=== PATIENT | female | born 1985 | race Caucasian/White ===

== ENCOUNTER 2021-03-22 23:42 | Emergency (ER) | payer MEDICARE, MEDICAID, SELFPAY ==
--- NOTE | ~2021-03-22 | CT_ITS ---
EXAMINATION: CT ABDOMEN AND PELVIS WITH CONTRAST CLINICAL INFORMATION: Left lower quadrant and left flank pain. COMPARISON: None TECHNIQUE: Multidetector volumetric images were obtained from the superior aspect of the liver through the pubic symphysis following administration 85 mL of Omnipaque 350 intravenous contrast. Sagittal and coronal reformatted images were obtained on the technologist's workstation. Oral contrast: No This CT examination was performed using dose optimization techniques as appropriate, variously including the following: *Automated exposure control *Adjustment of mA and/or kV according to patient size (this includes techniques or standardized protocols for targeted exams where dose is matched to indication/reason for exam; i.e. extremities or head) *Use of iterative reconstruction technique DLP: 1400 mGy-cm FINDINGS: LUNG BASES: The visualized lung bases are unremarkable. LIVER, GALLBLADDER, AND BILIARY TREE: The liver is normal in size, shape, and attenuation. No focal hepatic lesion or biliary ductal dilatation is present. Cholecystectomy. PANCREAS: Unremarkable. SPLEEN: Unremarkable. ADRENAL GLANDS: Unremarkable. KIDNEYS AND URETERS: The kidneys are normal in size, shape, and attenuation. There is mild left hydroureteronephrosis. 0.2 cm calculus at the left ureterovesicular junction. Impaired function of the left kidney with delayed excretion. BLADDER: Unremarkable. GASTROINTESTINAL TRACT: The stomach is unremarkable. Normal caliber small bowel. No obstruction. Normal appendix. No colonic wall thickening or inflammatory change. No free air or free fluid. ABDOMINAL WALL: No significant hernia is appreciated. LYMPH NODES: Normal. VASCULAR: Unremarkable. PELVIC VISCERA: Anteverted uterus. No adnexal mass. OSSEOUS STRUCTURES: No acute or suspicious osseous abnormality. CT/CT abdomen pelvis w con IMPRESSION: Mild left hydroureteronephrosis with a 0.2 cm calculus at the left ureterovesicular junction.
[2021-03-23 00:09] VITALS: BP 134/86; PULSE 70; RESP 20; TEMP 36.9; O2SAT 100; BMI 44.4
--- NOTE | 2021-03-23 00:26 | ED_ITS ---
HPI - Abdominal Pain General Chief Complaint: Abdominal Pain <DAVID Meza Last Filed: 03/23/21 01:53> Stated Complaint: nausea , abd pain <DAVID Meza Last Filed: 03/23/21 01:53> Time Seen by Provider: 03/23/21 00:26 <DAVID Meza Last Filed: 03/23/21 01:53> Source: patient <DAVID Meza Last Filed: 03/23/21 01:53> Mode of arrival: ambulatory <DAVID Meza Last Filed: 03/23/21 01:53> Limitations: no limitations <DAVID Meza Last Filed: 03/23/21 01:53> History of Present Illness HPI narrative: 36-year-old female presents with left flank pain radiating into her left lower quadrant and left groin that started 3 hours ago. She was out walking her dog after dinner and suddenly got the pain.Her pain is a 10/10 and she states that is like she is having childbirth contractions. She has vomited 3 times and is nauseous. She has had dysuria with urinary frequency that just started today. No fevers. No hematuria. Last menstrual period was 1 week ago. Patient has had a cholecystectomy and C-sections. Patient is on prednisone for a rotator cuff injury <DAVID Meza Last Filed: 03/23/21 01:53> MD elicited complaint: abdominal pain and flank pain <DAVID Meza Last Filed: 03/23/21 01:53> Onset (ago): hour(s) (3) <DAVID Meza Last Filed: 03/23/21 01:53> Pain Consistency: constant <DAVID Meza Last Filed: 03/23/21 01:53> Location: LLQ and L flank <DAVID Meza Last Filed: 03/23/21 01:53> Severity: severe <DAVID Meza Last Filed: 03/23/21 01:53> Quality: stabbing and aching <DAVID Meza Last Filed: 03/23/21 01:53> Radiation: LLQ <DAVID Meza Last Filed: 03/23/21 01:53> Exacerbating factors: nothing <DAVID Meza Last Filed: 03/23/21 01:53> Associated symptoms: nausea, vomiting and dysuria <DAVID Meza Last Filed: 03/23/21 01:53> Related Data Home Medications: Previous Rx's Medication Instructions Recorded ketorolac 10 mg tablet 10 mg PO TID PRN 5 Days #10 tab 03/23/21 ondansetron HCl 4 mg tablet 4 mg PO Q6H PRN #14 tab 03/23/21 (Zofran) tamsulosin 0.4 mg capsule 0.4 mg PO DAILY #7 cap 03/23/21 <DAVID Meza Last Filed: 03/23/21 01:53> Allergies/Adverse Reactions: Allergies Allergy/AdvReac Type Severity Reaction Status Date / Time acetaminophen Allergy Intermediate HIVES Verified 03/23/21 00:08 [From Tylenol-Codeine] oxcarbazepine Allergy Intermediate HIVES Verified 03/23/21 00:08 [From TRILEPTAL] From Tylenol-Codeine Allergy Intermediate HIVES Uncoded 02/29/20 17:46 DEPRESSION MED Allergy Unknown RASH Uncoded 02/29/20 17:46 From Demerol Allergy Unknown ITCH/RASH Uncoded 02/29/20 17:46 From SEROQUEL Allergy Unknown UNKNOWN Uncoded 02/29/20 17:46 <DAVID Meza Last Filed: 03/23/21 01:53> Review of Systems Constitutional: Denies anorexia, Denies chills, Denies fever(s), Denies headache(s) and Denies weakness <DAVID Meza Last Filed: 03/23/21 01:53> Eyes: Denies blurry vision and Denies change in vision <DAVID Meza Last Filed: 03/23/21 01:53> Denies otalgia, Denies headache(s), Denies neck pain and Denies sore throat <DAVID Meza Last Filed: 03/23/21 01:53> Cardiovascular: Denies chest pain, Denies palpitations and Denies dyspnea <DAVID Meza Last Filed: 03/23/21 01:53> Respiratory: Denies chest congestion, Denies cough and Denies dyspnea <DAVID Shelton - Last Filed: 03/23/21 01:53> Gastrointestinal: Reports abdominal pain, Denies melena, Denies hematochezia, Denies coffee ground emesis, Reports nausea, Reports vomiting and Denies hematemesis <DAVID Meza Last Filed: 03/23/21 01:53> Genitourinary: Denies genital lesions, Reports dysuria, Denies pelvic pain, Reports flank pain, Reports urinary urgency, Denies vaginal discharge, Denies vaginal dryness, Denies vaginal odor and Denies vaginal pruritus <DAVID Meza - Last Filed: 03/23/21 01:53> Musculoskeletal: Denies myalgias, Denies muscle weakness and Denies neck pain <DAVID Meza Last Filed: 03/23/21 01:53> Skin/Breast: Denies erythema <DAVID Meza Last Filed: 03/23/21 01:53> Denies headache(s) and Denies weakness <ADVID Meza - Last Filed: 03/23/21 01:53> Endocrine: Denies palpitations <DAVID Meza Last Filed: 03/23/21 01:53> Physical Exam Vital Signs: Vital Signs: Last Vital Signs Temp 98.4 F 03/23/21 00:09 Pulse 70 03/23/21 00:09 Resp 16 03/23/21 02:48 BP 134/86 03/23/21 00:09 Pulse Ox 100 03/23/21 00:09 Body Mass Index 44.4 <DAVID Meza - Last Filed: 03/23/21 01:53> Vital Signs: Last Vital Signs Temp 98.4 F 03/23/21 00:09 Pulse 70 03/23/21 00:09 Resp 16 03/23/21 02:48 BP 134/86 03/23/21 00:09 Pulse Ox 100 03/23/21 00:09 Body Mass Index 44.4 <Faith Lee MD - Last Filed: 03/23/21 03:08> Const: General: alert, awake, acute distress (from pain) moderate and anxious <DAVID Meza Last Filed: 03/23/21 01:53> Nutritional Appearance: obese centrally obese <Meka Nicholson [facility] Last Filed: 03/23/21 01:53> Orientation/consciousness: patient oriented x3 <Meka Nicholson [facility] Last Filed: 03/23/21 01:53> Limitations: no limitations <Meka Nicholson [facility] Last Filed: 03/23/21 01:53> HENMT: Head: Yes normal to inspection, Yes normocephalic and Yes atraumatic <Meka Nicholson [facility] Last Filed: 03/23/21 01:53> Eyes: Conjunctivae: conjunctivae normal <Meka Nicholson [facility] Last Filed: 03/23/21 01:53> Pupils: Equal, round and reactive pupils present <Meka Nicholson [facility] Last Filed: 03/23/21 01:53> EOM: EOMs intact bilaterally <Meka Nicholson [facility] Last Filed: 03/23/21 01:53> Neck: Neck: Yes normal visual inspection, Yes full ROM, Yes no lymphadenopathy, Yes no meningeal signs and Yes trachea midline <Meka Nicholson [facility] Last Filed: 03/23/21 01:53> Resp: Effort & Inspection: normal respiratory effort and able to speak in complete sentences <Meka Nicholson [facility] Last Filed: 03/23/21 01:53> Auscultation: clear to auscultation bilaterally, no crackles, no rales, no rhonchi and no wheezes <Meka Nicholson [facility] Last Filed: 03/23/21 01:53> Cardio: Rate: regular rate <Meka Nicholson [facility] Last Filed: 03/23/21 01:53> Rhythm: regular rhythm <Meka Nicholson [facility] Last Filed: 03/23/21 01:53> Heart sounds: S1 normal heart sound present and S2 normal heart sound present <Meka Nicholson [facility] Last Filed: 03/23/21 01:53> GI: Inspection: Yes Abdominal panniculus present and Yes obesity <Meka Nicholson [facility] Last Filed: 03/23/21 01:53> Palpation (GI): Soft to palpation, Tenderness to palpation present (GI) in the LLQ, Guarding due to palpation present (GI) in the LLQ and not rigid <DAVID Meza - Last Filed: 03/23/21 01:53> Percussion: Yes normal to percussion <DAVID Meza Last Filed: 03/23/21 01:53> Auscultation: normal bowel sounds <DAVID Meza Last Filed: 03/23/21 01:53> Rectal Exam - Female: deferred <DAVID Meza Last Filed: 03/23/21 01:53> : General: Yes CVA tenderness on the left (mild) <DAVID Meza - Last Filed: 03/23/21 01:53> Back/Spine/Pelvis: Back: CVA tenderness <DAVID Meza - Last Filed: 03/23/21 01:53> Skin: General skin exam: no rashes or lesions noted <DAVID Meza Last Filed: 03/23/21 01:53> Neuro: General: patient oriented x3, tone normal, moves all extremities, no meningeal signs and no focal motor deficits <DAVID Meza Last Filed: 03/23/21 01:53> Cranial nerves: Yes Equal, round and reactive pupils present <DAVID Meza Last Filed: 03/23/21 01:53> Extrem: General: Yes normal to inspection and Yes full ROM <DAVID Meza - Last Filed: 03/23/21 01:53> Psych: Appearance: disheveled <DAVID Meza Last Filed: 03/23/21 01:53> Mental Status: mental status grossly normal <DAVID Meza Last Filed: 03/23/21 01:53> Speech and movement: Normal speech and movement present <DAVID Meza Last Filed: 03/23/21 01:53> Affect: Anxious affect present <DAVID Meza - Last Filed: 03/23/21 01:53> Course Course Course Narrative: 36-year-old female with sudden onset of left flank pain and left lower abdominal pain radiating into her left groin. Patient has been nauseous from the pain and vomited 3 times. On exam, patient has mild left CVA tenderness and is tender and guarding in her left lower quadrant. 22 gauge IV obtained in right hand. Patient is difficult to obtain IV access. Plan is to hydrate, get UA, labs, urine , hopefully place IV in antecubital fossa, and get CT scan. <DAVID Meza - Last Filed: 03/23/21 01:53> 36-year-old female with sudden onset of left flank pain and left lower abdominal pain radiating into her left groin. Patient has been nauseous from the pain and vomited 3 times. On exam, patient has mild left CVA tenderness and is tender and guarding in her left lower quadrant. 22 gauge IV obtained in right hand. Patient is difficult to obtain IV access. Plan is to hydrate, get UA, labs, urine , hopefully place IV in antecubital fossa, and get CT scan. I received sign-out from DAVID Nicholson, patient's CT scan shows ureterolithiasis. I discussed the findings with the patient. Patient has a white blood cell count of 19.4. Patient states she has been taking 20 mg of prednisone for several days. Urinalysis is negative, creatinine function within normal limits, antibiotics not indicated. Patient received 1 more dose of 2 mg of morphine, feeling better. <Faith Lee MD - Last Filed: 03/23/21 03:08> Reevaluation(s) Reevaluation #1: After morphine and ketorolac on re-examine patient states her pain is better. CBC shows a leukocytosis of 19.4 which could be due to her prednisone Chemistries remarkable only for blood glucose of 138. Patient is not by serum hCG. Signed pt out to Dr Lee, pending UA and abd/pelvis CT scan. <DAVID Meza - Last Filed: 03/23/21 01:53> MDM - Abdominal Pain Lab Data Result diagrams: : 03/23/21 01:03 03/23/21 01:03 <DAVID Meza - Last Filed: 03/23/21 01:53> Labs: Lab Results 03/23/21 03/23/21 03/23/21 Range/Units 01:03 01:03 01:58 WBC 19.4 H (4.8-10.8) X10*3/uL RBC 4.48 (4.20-5.50) X10*6/uL Hgb 12.4 (12.0-16.0) g/dl Hct 38.9 (37-47) % MCV 86.8 (80-98) fL MCH 27.7 (27.0-33.0) pg MCHC 31.9 (31.0-35.0) g/dl RDW 13.1 (11.0-16.0) % Plt Count 331 (160-400) X10*3/uL MPV 9.4 (9.4-12.3) fL Immature Gran % (Auto) 0.6 H (0.0-0.4) % Neut % (Auto) 77.7 H (45-73) % Lymph % (Auto) 14.4 L (20-40) % [place] % (Auto) 6.6 (2-11) % Eos % (Auto) 0.3 (0-4) % Baso % (Auto) 0.4 (0-2) % Lymph # (Auto) 2.8 (1.2-4.9) X10*3/uL [place] # (Auto) 1.3 H (0.1-1.2) X10*3/uL Eos # (Auto) 0.1 (0.0-0.4) X10*3/uL Baso # (Auto) 0.1 (0.0-0.2) X10*3/uL Abs Immat Gran (auto) 0.11 H (0.00-0.03) X10*3/uL Absolute Neuts (auto) 15.1 H (2.0-8.3) X10*3/uL Absolute Nucleated RBC 0.000 (0.0-0.012) X10*3/uL Nucleated RBC % (auto) 0.0 (0.0-0.2) /100WBC Sodium 140 (135-145) mmol/L Potassium 4.6 (3.3-5.1) mmol/L Chloride 107 (96-108) mmol/L Carbon Dioxide 22 (22-29) mmol/L Anion Gap 16 (12-20) BUN 16 (9-16) mg/dL Creatinine 1.08 (0.5-1.4) mg/dL Estim Creat Clear Calc 89.2 Estimated GFR 58 Random Glucose 138 H (60-115) mg/dL Calcium 9.8 (8.4-10.2) mg/dL Total Bilirubin 0.3 (0.0-1.0) mg/dL AST 18 (5-31) U/L ALT 19 (0-31) U/L Alkaline Phosphatase 83 (39-117) U/L Total Protein 7.1 (6.5-8.0) g/dL Albumin 4.4 (3.5-5.0) g/dL Beta HCG, Quant < 2 mIU/mL Urine Color YELLOW Urine Appearance CLEAR Urine pH 6.0 (5.0-8.0) Ur Specific [place] 1.025 (1.005-1.025) Urine Protein NEG (NEG-TRACE) MG/DL Urine Glucose (UA) NEG (NEG) MG/DL Urine Ketones 15 (NEG) MG/DL Urine Blood NEG (NEG) Urine Nitrite NEG (NEG) Ur Leukocyte Esterase NEG (NEG) Urine Test (NEGATIVE) 03/23/21 Range/Units 01:58 WBC (4.8-10.8) X10*3/uL RBC (4.20-5.50) X10*6/uL Hgb (12.0-16.0) g/dl Hct (37-47) % MCV (80-98) fL MCH (27.0-33.0) pg MCHC (31.0-35.0) g/dl RDW (11.0-16.0) % Plt Count (160-400) X10*3/uL MPV (9.4-12.3) fL Immature Gran % (Auto) (0.0-0.4) % Neut % (Auto) (45-73) % Lymph % (Auto) (20-40) % [place] % (Auto) (2-11) % Eos % (Auto) (0-4) % Baso % (Auto) (0-2) % Lymph # (Auto) (1.2-4.9) X10*3/uL [place] # (Auto) (0.1-1.2) X10*3/uL Eos # (Auto) (0.0-0.4) X10*3/uL Baso # (Auto) (0.0-0.2) X10*3/uL Abs Immat Gran (auto) (0.00-0.03) X10*3/uL Absolute Neuts (auto) (2.0-8.3) X10*3/uL Absolute Nucleated RBC (0.0-0.012) X10*3/uL Nucleated RBC % (auto) (0.0-0.2) /100WBC Sodium (135-145) mmol/L Potassium (3.3-5.1) mmol/L Chloride (96-108) mmol/L Carbon Dioxide (22-29) mmol/L Anion Gap (12-20) BUN (9-16) mg/dL Creatinine (0.5-1.4) mg/dL Estim Creat Clear Calc Estimated GFR Random Glucose (60-115) mg/dL Calcium (8.4-10.2) mg/dL Total Bilirubin (0.0-1.0) mg/dL AST (5-31) U/L ALT (0-31) U/L Alkaline Phosphatase (39-117) U/L Total Protein (6.5-8.0) g/dL Albumin (3.5-5.0) g/dL Beta HCG, Quant mIU/mL Urine Color Urine Appearance Urine pH (5.0-8.0) Ur Specific [place] (1.005-1.025) Urine Protein (NEG-TRACE) MG/DL Urine Glucose (UA) (NEG) MG/DL Urine Ketones (NEG) MG/DL Urine Blood (NEG) Urine Nitrite (NEG) Ur Leukocyte Esterase (NEG) Urine Test NEGATIVE (NEGATIVE) <DAVID Meza - Last Filed: 03/23/21 01:53> Lab Results 03/23/21 03/23/21 03/23/21 Range/Units 01:03 01:03 01:58 WBC 19.4 H (4.8-10.8) X10*3/uL RBC 4.48 (4.20-5.50) X10*6/uL Hgb 12.4 (12.0-16.0) g/dl Hct 38.9 (37-47) % MCV 86.8 (80-98) fL MCH 27.7 (27.0-33.0) pg MCHC 31.9 (31.0-35.0) g/dl RDW 13.1 (11.0-16.0) % Plt Count 331 (160-400) X10*3/uL MPV 9.4 (9.4-12.3) fL Immature Gran % (Auto) 0.6 H (0.0-0.4) % Neut % (Auto) 77.7 H (45-73) % Lymph % (Auto) 14.4 L (20-40) % [place] % (Auto) 6.6 (2-11) % Eos % (Auto) 0.3 (0-4) % Baso % (Auto) 0.4 (0-2) % Lymph # (Auto) 2.8 (1.2-4.9) X10*3/uL [place] # (Auto) 1.3 H (0.1-1.2) X10*3/uL Eos # (Auto) 0.1 (0.0-0.4) X10*3/uL Baso # (Auto) 0.1 (0.0-0.2) X10*3/uL Abs Immat Gran (auto) 0.11 H (0.00-0.03) X10*3/uL Absolute Neuts (auto) 15.1 H (2.0-8.3) X10*3/uL Absolute Nucleated RBC 0.000 (0.0-0.012) X10*3/uL Nucleated RBC % (auto) 0.0 (0.0-0.2) /100WBC Sodium 140 (135-145) mmol/L Potassium 4.6 (3.3-5.1) mmol/L Chloride 107 (96-108) mmol/L Carbon Dioxide 22 (22-29) mmol/L Anion Gap 16 (12-20) BUN 16 (9-16) mg/dL Creatinine 1.08 (0.5-1.4) mg/dL Estim Creat Clear Calc 89.2 Estimated GFR 58 Random Glucose 138 H (60-115) mg/dL Calcium 9.8 (8.4-10.2) mg/dL Total Bilirubin 0.3 (0.0-1.0) mg/dL AST 18 (5-31) U/L ALT 19 (0-31) U/L Alkaline Phosphatase 83 (39-117) U/L Total Protein 7.1 (6.5-8.0) g/dL Albumin 4.4 (3.5-5.0) g/dL Beta HCG, Quant < 2 mIU/mL Urine Color YELLOW Urine Appearance CLEAR Urine pH 6.0 (5.0-8.0) Ur Specific [place] 1.025 (1.005-1.025) Urine Protein NEG (NEG-TRACE) MG/DL Urine Glucose (UA) NEG (NEG) MG/DL Urine Ketones 15 (NEG) MG/DL Urine Blood NEG (NEG) Urine Nitrite NEG (NEG) Ur Leukocyte Esterase NEG (NEG) Urine Test (NEGATIVE) 03/23/21 Range/Units 01:58 WBC (4.8-10.8) X10*3/uL RBC (4.20-5.50) X10*6/uL Hgb (12.0-16.0) g/dl Hct (37-47) % MCV (80-98) fL MCH (27.0-33.0) pg MCHC (31.0-35.0) g/dl RDW (11.0-16.0) % Plt Count (160-400) X10*3/uL MPV (9.4-12.3) fL Immature Gran % (Auto) (0.0-0.4) % Neut % (Auto) (45-73) % Lymph % (Auto) (20-40) % [place] % (Auto) (2-11) % Eos % (Auto) (0-4) % Baso % (Auto) (0-2) % Lymph # (Auto) (1.2-4.9) X10*3/uL [place] # (Auto) (0.1-1.2) X10*3/uL Eos # (Auto) (0.0-0.4) X10*3/uL Baso # (Auto) (0.0-0.2) X10*3/uL Abs Immat Gran (auto) (0.00-0.03) X10*3/uL Absolute Neuts (auto) (2.0-8.3) X10*3/uL Absolute Nucleated RBC (0.0-0.012) X10*3/uL Nucleated RBC % (auto) (0.0-0.2) /100WBC Sodium (135-145) mmol/L Potassium (3.3-5.1) mmol/L Chloride (96-108) mmol/L Carbon Dioxide (22-29) mmol/L Anion Gap (12-20) BUN (9-16) mg/dL Creatinine (0.5-1.4) mg/dL Estim Creat Clear Calc Estimated GFR Random Glucose (60-115) mg/dL Calcium (8.4-10.2) mg/dL Total Bilirubin (0.0-1.0) mg/dL AST (5-31) U/L ALT (0-31) U/L Alkaline Phosphatase (39-117) U/L Total Protein (6.5-8.0) g/dL Albumin (3.5-5.0) g/dL Beta HCG, Quant mIU/mL Urine Color Urine Appearance Urine pH (5.0-8.0) Ur Specific [place] (1.005-1.025) Urine Protein (NEG-TRACE) MG/DL Urine Glucose (UA) (NEG) MG/DL Urine Ketones (NEG) MG/DL Urine Blood (NEG) Urine Nitrite (NEG) Ur Leukocyte Esterase (NEG) Urine Test NEGATIVE (NEGATIVE) <Faith Lee MD - Last Filed: 03/23/21 03:08> Imaging Data CT abdomen: Radiologist's impression: DLP: 1400 mGy-cm FINDINGS: LUNG BASES: The visualized lung bases are unremarkable.? LIVER, GALLBLADDER, AND BILIARY TREE: The liver is normal in size, shape, and attenuation. No focal hepatic lesion or biliary ductal dilatation is present. Cholecystectomy.? PANCREAS: Unremarkable.? SPLEEN: Unremarkable.? ADRENAL GLANDS: Unremarkable.? KIDNEYS AND URETERS: The kidneys are normal in size, shape, and attenuation. There is mild left hydroureteronephrosis. 0.2 cm calculus at the left ureterovesicular junction. Impaired function of the left kidney with delayed excretion. BLADDER: Unremarkable.? GASTROINTESTINAL TRACT: The stomach is unremarkable. Normal caliber small bowel. No obstruction. Normal appendix. No colonic wall thickening or inflammatory change. No free air or free fluid.? ABDOMINAL WALL: No significant hernia is appreciated.? LYMPH NODES: Normal. VASCULAR: Unremarkable. PELVIC VISCERA: Anteverted uterus. No adnexal mass.? OSSEOUS STRUCTURES: No acute or suspicious osseous abnormality.? CT/CT abdomen pelvis w con IMPRESSION: Mild left hydroureteronephrosis with a 0.2 cm calculus at the left ureterovesicular junction.? <Faith Lee MD - Last Filed: 03/23/21 03:08> Discharge Plan Discharge Clinical Impression: Ureterolithiasis Abdominal pain Qualifiers: Abdominal location: left lower quadrant Qualified Code(s): R10.32 - Left lower quadrant pain <DAVID Meza - Last Filed: 03/23/21 01:53> Patient Disposition: Home, Self-Care <DAVID Meza - Last Filed: 03/23/21 01:53> Instructions: Kidney Stones (ED) <DAVID Meza - Last Filed: 03/23/21 01:53> Additional Instructions: Please follow-up with your primary care physician tomorrow. If you have any worsening or new symptoms, please return to the emergency room or call 911 <DAVID Meza - Last Filed: 03/23/21 01:53> Prescriptions: New ketorolac 10 mg tablet 10 mg PO TID PRN (Reason: pain) 5 Days Qty: 10 RF: 0 tamsulosin 0.4 mg capsule 0.4 mg PO DAILY Qty: 7 RF: 0 ondansetron HCl [Zofran] 4 mg tablet 4 mg PO Q6H PRN (Reason: nausea and vomiting) Qty: 14 RF: 0 <DAVID Meza - Last Filed: 03/23/21 01:53> Referrals: Guzman Correa MD [Physician] - 2 days <DAVID Meza - Last Filed: 03/23/21 01:53> [facility] Past Medical History Medical History: Medical History Diabetes <DAVID Meza - Last Filed: 03/23/21 01:53> Social History Social History: Social History Advance Directives: No Advance Directives Information Provided: Yes <DAVID Meza - Last Filed: 03/23/21 01:53>
[2021-03-23] MEDS: 0.9 % Sodium Chloride 1,000 ML 999 ML IV (00:52)
[2021-03-23] MEDS: ondansetron HCL 4 MG/2 ML VIAL IVPUSH (00:52)
[2021-03-23 00:53] VITALS: RESP 16
[2021-03-23] MEDS: Morphine Sulfate 4 MG/ML CARTRIDGE IVPUSH (00:53)
[2021-03-23 01:08] LABS: Basophils Absolute Auto 0.1 X10*3/uL (0.0-0.2); Basophils Percent Auto 0.4 % (0-2); Eosinophils Absolute Auto 0.1 X10*3/uL (0.0-0.4); Eosinophils Percent Auto 0.3 % (0-4); Hematocrit 38.9 % (37-47); Hemoglobin 12.4 g/dl (12.0-16.0); Imm Gran Abs Auto 0.11 X10*3/uL (0.00-0.03); Imm Gran Pct Auto 0.6 % (0.0-0.4); Lymphocytes Absolute Auto 2.8 X10*3/uL (1.2-4.9); Lymphocytes Percent Auto 14.4 % (20-40); Mean Corpuscular HGB Conc 31.9 g/dl (31.0-35.0); Mean Corpuscular Hemoglobin 27.7 pg (27.0-33.0); Mean Corpuscular Volume 86.8 fL (80-98); Mean Platelet Volume 9.4 fL (9.4-12.3); Monocytes Absolute Auto 1.3 X10*3/uL (0.1-1.2); Monocytes Percent Auto 6.6 % (2-11); Neutrophils Absolute Auto 15.1 X10*3/uL (2.0-8.3); Neutrophils Percent Auto 77.7 % (45-73); Platelet Count 331 X10*3/uL (160-400); Red Blood Count 4.48 X10*6/uL (4.20-5.50); Red Cell Distribution Width 13.1 % (11.0-16.0); White Blood Count 19.4 X10*3/uL (4.8-10.8)
[2021-03-23] MEDS: Ketorolac Tromethamine 15 MG/ML VIAL 30 MG IVPUSH (01:08)
[2021-03-23 01:38] LABS: Alanine Aminotransferase 19 U/L (0-31); Albumin Level 4.4 g/dL (3.5-5.0); Alkaline Phosphatase 83 U/L (39-117); Anion Gap 16 (12-20); Aspartate Amino Transferase 18 U/L (5-31); Bilirubin Total 0.3 mg/dL (0.0-1.0); Blood Urea Nitrogen 16 mg/dL (9-16); Calcium 9.8 mg/dL (8.4-10.2); Carbon Dioxide 22 mmol/L (22-29); Chloride 107 mmol/L (96-108); Creatinine Clr Calc Pharmacy 89.2; Estimated Glomerular Filt Rate 58; Glucose Random 138 mg/dL (60-115); Potassium 4.6 mmol/L (3.3-5.1); Sodium 140 mmol/L (135-145); Total Protein 7.1 g/dL (6.5-8.0)
[2021-03-23 01:41] LABS: MANUAL DIFF FLAG NO
[2021-03-23 01:44] LABS: HCG Quantitative < 2 mIU/mL
[2021-03-23 02:11] LABS: UPreg QC Valid YES; Urine Pregnancy NEGATIVE (NEGATIVE)
[2021-03-23 02:15] LABS: Appearance Urine CLEAR; Color Urine YELLOW; Glucose Urine UA NEG (NEG); Leukocyte Esterase Urine NEG (NEG); Nitrite Urine NEG (NEG); Specific Gravity - Urine 1.025 (1.005-1.025); Urine Blood NEG (NEG); Urine Ketones 15 MG/DL (NEG); Urine Protein NEG (NEG-TRACE)
[2021-03-23] MEDS: iohexoL 350 MG/ML 100 ML INFUS..BTL 85 ML IV (02:18)
[2021-03-23 02:38] VITALS: RESP 16
[2021-03-23 02:39] VITALS: RESP 16
[2021-03-23] MEDS: Morphine Sulfate 2 MG/ML CARTRIDGE IVPUSH (02:39)
[2021-03-23 02:48] VITALS: RESP 16
[2021-03-23] MEDS: 0.9 % Sodium Chloride 1,000 ML 999 ML IVCONT (02:55)
[2021-03-23] MEDS: Tamsulosin HCL 0.4 MG CAPSULE PO (03:23)
[2021-03-23] MEDS: Ibuprofen 400 MG TABLET PO (03:23)
[2021-03-23 04:53] VITALS: BP 141/90; PULSE 73; RESP 16; O2SAT 100
== END 2021-03-23 04:55 | disposition home or self-care (01) ==
PROVIDERS: Emergency Medicine; Physician Assistant; Emergency Provider Emergency Medicine
DX: N20.1 Calculus of ureter (principal); R10.32 Left lower quadrant pain; R11.2 Nausea with vomiting, unspecified; R30.0 Dysuria; Z79.899 Other long term (current) drug therapy
CPT/HCPCS: 36415; 74177; 80053; 81003; 81025; 84702; 85025; 96361; 96374; 96375; 96376; 99284; J1885; J2270; J2405; Q9967

== ENCOUNTER 2024-10-16 10:26 | Emergency (ER) | payer MEDICARE, MEDICAID, SELFPAY ==
--- NOTE | ~2024-10-16 | US_ITS ---
EXAMINATION: US LOWER EXTREMITY VEINS LIMITED FOLLOW UP RIGHT HISTORY: posterior knee/calf pain COMPARISON: There are no prior studies for comparison. TECHNIQUE: Duplex and color Doppler sonographic examination of the deep venous system of the right lower extremity was performed. FINDINGS: The common femoral, superficial femoral, and popliteal veins are patent demonstrating normal compressibility, spontaneous flow, and augmentation. There is a normal color and spectral Doppler waveform appearance of the visualized deep venous system above the knee. The posterior tibial and peroneal veins are patent. Incidental note is made of fluid just above the calcaneus which is likely in the retrocalcaneal bursa. US/US venous duplex LE RT IMPRESSION: No evidence of acute DVT in the right lower extremity. Electronically signed by: Chester Jackson MD 10/16/2024 12:23 PM EDT
--- NOTE | ~2024-10-16 | XR_ITS ---
EXAMINATION: XR TIBIA AND FIBULA, RIGHT CLINICAL INFORMATION: leg pain COMPARISON: None available. TECHNIQUE: AP and lateral views of the right tibia and fibula were obtained. FINDINGS: The bones and soft tissues are normal. No fracture. No osseous lesions. XR/XR tibia fibula RT 2V IMPRESSION: Normal right tibia and fibula. Electronically signed by: Moo Salmon MD 10/16/2024 12:26 PM EDT
--- NOTE | ~2024-10-16 | XR_ITS ---
EXAMINATION: XR FOOT, RIGHT CLINICAL INFORMATION: fracture fall COMPARISON: None available. TECHNIQUE: AP, lateral, and oblique views of the right foot. FINDINGS: No fracture, dislocation, or suspicious bone lesion. Normal bone mineralization. Normal alignment. Minimal arthritis at the first MTP joint. Joint spaces are otherwise preserved. No significant arthropathy. There is a moderate-sized plantar calcaneal spur. There is a moderate sized Achilles spur with overlying soft tissue swelling suggesting acute enthesopathy. XR/XR foot RT 2V IMPRESSION: 1. No acute fracture or dislocation. 2. Moderate-sized Achilles spurring with overlying soft tissue swelling suggests acute enthesopathy. 3. Moderate-sized plantar calcaneal spur. Electronically signed by: Moo Salmon MD 10/16/2024 12:25 PM EDT
--- NOTE | ~2024-10-16 | XR_ITS ---
EXAMINATION: XR KNEE, RIGHT CLINICAL INFORMATION: right knee pain COMPARISON: None available. TECHNIQUE: Four views of the right knee. FINDINGS: No fracture, dislocation, or suspicious bone lesion. Normal bone mineralization. Normal alignment. Minimal medial compartment osteoarthrosis. Joint spaces are otherwise preserved. No significant arthropathy. Mild patella bety. No significant joint effusion. Soft tissues appear normal. XR/XR knee RT 4V IMPRESSION: 1. No acute bony abnormalities. No joint effusion. 2. Minimal medial compartment osteoarthrosis. 3. Mild patella bety. Electronically signed by: Moo Salmon MD 10/16/2024 12:28 PM EDT
--- NOTE | ~2024-10-16 | XR_ITS ---
EXAMINATION: XR ANKLE, RIGHT CLINICAL INFORMATION: fall. fracture COMPARISON: None available. TECHNIQUE: AP, lateral, and mortise views of the right ankle. FINDINGS: No fracture, dislocation, or suspicious bone lesion. There is no malalignment. Ankle mortise is intact. The talar dome is normal. The subtalar joints are intact. The midfoot and hindfoot are normally aligned. Moderate sized plantar calcaneal spur, with a large dorsal Achilles spur with overlying soft tissue swelling suggesting acute enthesopathy. There is no ankle joint effusion. The soft tissues appear normal. XR/XR ankle RT 2V IMPRESSION: 1. No acute fracture or dislocation. 2. Acute appearing Achilles enthesopathy, with soft tissue swelling and spurring. 3. Moderate size plantar calcaneal spur. Electronically signed by: Moo Salmon MD 10/16/2024 12:22 PM EDT
[2024-10-16 11:08] VITALS: BP 129/82; PULSE 82; RESP 16; TEMP 36.4; O2SAT 99; BMI 42.9
--- NOTE | 2024-10-16 11:10 | ED.GENADULT ---
HPI - General Adult General Chief complaint: Extremity Injury, Lower Stated complaint: r leg pain Time Seen by Provider: 10/16/24 14:08 Source: patient Mode of arrival: ambulatory Limitations: no limitations History of Present Illness ED Provider: Slade Mederos HPI narrative: 39 yold female with pmh of diabetes presents to the ED for right knee, right leg, and right ankle pain for one week without any trauma. 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 patient states she is not able to bear weight on extremity. patient states no chest pain or shortness of breath. Related Data Previous Rx's ?Medication ?Instructions ?Recorded ketorolac 10 mg tablet 10 mg PO TID PRN pain 5 days #10 03/23/21 tabs ondansetron HCl 4 mg tablet 4 mg PO Q6H PRN nausea and 03/23/21 (Zofran) vomiting #14 tabs tamsulosin 0.4 mg capsule 0.4 mg PO DAILY #7 caps 03/23/21 oxycodone 5 mg tablet 5 mg PO TID PRN pain #9 tabs 10/16/24 prednisone 20 mg tablet 40 mg (2 x 20 mg) PO DAILY 5 days 10/16/24 #10 tabs Allergies Allergy/AdvReac Type Severity Reaction Status Date / Time oxcarbazepine Allergy Intermediate HIVES Verified 10/16/24 11:09 [From TRILEPTAL] From Tylenol-Codeine Allergy Intermediate HIVES Uncoded 10/16/24 11:07 DEPRESSION MED Allergy Unknown RASH Uncoded 10/16/24 11:07 From Demerol Allergy Unknown ITCH/RASH Uncoded 10/16/24 11:07 From SEROQUEL Allergy Unknown UNKNOWN Uncoded 10/16/24 11:07 Review of Systems Review of Systems: Right knee, ankle pain, leg pain Yes all other systems are reviewed and are negative PMFSH Past Medical History Medical History Diabetes Social History Social History Advance Directives: No Advance Directives Information Provided: Yes Physical Exam ED Vital Signs: Vital Signs - 24 hr 10/16/24 11:08 10/16/24 14:43 Temperature 97.5 F 97.5 F Pulse Rate 82 82 Respiratory Rate 16 16 Blood Pressure 129/82 129/82 Pulse Oximetry 99 99 Oxygen Delivery Method Room Air Room Air BMI result Body Mass Index 42.9 Const General: cooperative, healthy appearing, comfortable, no acute distress, well developed, alert, awake and Physically active Orientation/consciousness: patient oriented x3 HENMT Head: Yes normal to inspection, Yes No palpable skull fracture present, Yes normocephalic and Yes atraumatic Eyes General: appearance normal, both eyes and all related structures Neck Neck: Yes normal visual inspection, Yes full ROM, Yes no lymphadenopathy, Yes no meningeal signs, Yes trachea midline, Yes supple, No anterior neck swelling and No tender Chest Chest palpation & inspection: normal inspection of the chest and normal palpation of entire chest wall Resp Effort & Inspection: normal respiratory effort and able to speak in complete sentences Auscultation: clear to auscultation bilaterally Cardio Jugular venous distension: no JVD Heart sounds: S1 normal heart sound present and S2 normal heart sound present GI Inspection: Yes normal to inspection Palpation (GI): not firm, nontender, no guarding and not rigid General: Yes no CVA tenderness Back/Spine/Pelvis Back: no CVA tenderness and No back tenderness Skin General skin exam: no rashes or lesions noted, elasticity normal and turgor normal Neuro General: patient oriented x3, gait normal, no meningeal signs, no focal motor deficits and CN's II-XI intact bilaterally Extrem General: Yes normal to inspection, Yes full ROM and Yes capillary refill normal Knee images: 1. positive for tenderness. negative for ecchymosis, erythema, stiffness, crepitus, red streaks or deformity. negative for calf tenderness. rest of extremity is normal. motor, neuro, and vascular exam is intact. Ankle/foot/toe images: 1. positive for tenderness on palpation. negative for erythema, ecchymosis, deformity, crepits, pus dishcarge, or foul odor. Achilles intact. negative Graham test. rest of extremity is normal. motor, neuro, and vascular exam is intact. Course Course Course Narrative: RME; 39 yold female presents to the ED for right posterior knee pain going down leg that has worsened. Patient was seen at [facility] and found to have landry cysts. today she fell , but did not fall to the ground. she caught herself, but states have pain in achilles of right leg. Ablel to move achilles, but with pain. positive for right anterior and posterior knee pain. labs and imaging ordered. Medical Decision Making Medical Decision Making [facility] Narrative: 39-year-old female presents to ED for right leg ankle and posterior knee pain. Patient has trouble bearing weight. Patient denies any recent trauma. Patient states he is having going on for a week. Patient was informed she had Landry's cyst at [facility]. patient denies any chest pain, fever, pleurisy, recent long travel, bluish/black dilscoration, red streaks, or any IV drug use. Patient is not able to take NSAIDs and Tylenol as per her primary care provider. Negative Graham test. Patient is able to move Achilles. Ultrasound negative for Landry's cyst or DVT. Ultrasound does shows fluid in the bursa near Achilles area. X-rays also shows severe plantar Achilles osteophytes. Patient is placed in crutches and Jorje wrap. Patient will be discharged with pain medication steroids. Patient is informed to follow up with the orthopedic surgeon. Not suspecting septic joint, tenosynovitis, arterial occlusion, compartment syndrome, gout, compartment syndrome, arterial occlusion, cellulitis, osteomyelitits, necortizing fascitits, or any life-threatening etiology Differential Diagnosis Differential Diagnoses: The differential diagnosis associated with the presentation includes (DVT, Landry's cyst) Admission/Observation Consideration of admission/observation: Escalation of care including admission/observation considered Lab Data [facility] Lab Attestation statement: I reviewed the patient's lab results. 10/16/24 11:44 10/16/24 11:44 Labs: Lab Results 10/16/24 Range/Units 11:44 WBC 11.5 H (4.8-10.8) X10*3/uL RBC 5.04 (4.20-5.50) X10*6/uL Hgb 14.1 (12.0-16.0) g/dl Hct 43.7 (37.0-47.0) % MCV 86.7 (80.0-98.0) fL MCH 28.0 (27.0-33.0) pg MCHC 32.3 (31.0-35.0) g/dl RDW 13.5 (11.0-16.0) % Plt Count 342 (160-400) X10*3/uL MPV 9.3 L (9.4-12.3) fL Immature Gran % (Auto) 0.5 H (0.0-0.4) % Neut % (Auto) 60.4 (45-73) % Lymph % (Auto) 27.7 (20-40) % [place] % (Auto) 5.8 (2-11) % Eos % (Auto) 4.7 H (0-4) % Baso % (Auto) 0.9 (0-2) % Lymph # (Auto) 3.2 (1.2-4.9) X10*3/uL [place] # (Auto) 0.7 (0.1-1.2) X10*3/uL Eos # (Auto) 0.5 H (0.0-0.4) X10*3/uL Baso # (Auto) 0.1 (0.0-0.2) X10*3/uL Abs Immat Gran (auto) 0.06 H (0.00-0.03) X10*3/uL Absolute Neuts (auto) 7.0 (2.0-8.3) x10*3/uL Absolute Nucleated RBC 0.000 (0.0-0.012) X10*3/uL Nucleated RBC % (auto) 0.0 (0.0-0.2) /100WBC PT 12.4 (10.9-12.4) SEC INR 1.1 (0.9-1.1) APTT 30.3 (26.0-36.8) SEC Sodium 141 (135-145) mmol/L Potassium 4.0 (3.3-5.1) mmol/L Chloride 108 (96-108) mmol/L Carbon Dioxide 25 (22-29) mmol/L Anion Gap 12 (12-20) BUN 11 (9-16) mg/dL Creatinine 0.74 (0.5-1.4) mg/dL Estim Creat Clear Calc 123.8 Estimated GFR > 60 Random Glucose 108 (60-115) mg/dL Calcium 9.7 (8.4-10.2) mg/dL Total Bilirubin 0.2 (0.0-1.0) mg/dL AST 22 (5-31) U/L ALT 26 (0-31) U/L Alkaline Phosphatase 91 (39-117) U/L Total Protein 7.4 (6.5-8.0) g/dL Albumin 4.4 (3.5-5.0) g/dL Independent Interpretation I performed an independent interpretation of an: Plain X-Ray and Ultrasound Radiology Impression Discussion of test interpretation with radiology: I have reviewed the radiologist's reading. Independent Historian Clinical information obtained from an independent historian. History obtained from or confirmed by: Other (patient) Prescription Management I considered prescription management with: Pain Medication Discharge Plan Discharge Clinical Impression: Retrocalcaneal bursitis (back of heel), Enthesopathy of ankle Patient Disposition: Home, Self-Care Instructions: Ankle Bursitis (ED), Heel Spur (ED) Additional Instructions: Your ultrasound came back negative for Landry's cyst or blood clot but does shows fluid in your ankle calcaneal bursa area which can be considered ankle bursitis. 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 You will need follow up with orthopedic surgeon for management. Return to the ED immediately for worsening pain, increased swelling, bluish black discoloration, redness, red streaks, fever, chills, calf pain, chest pain, shortness of breath, or any other concerning symptoms. EXAMINATION: US LOWER EXTREMITY VEINS LIMITED FOLLOW UP RIGHT HISTORY: posterior knee/calf pain COMPARISON: There are no prior studies for comparison. TECHNIQUE: Duplex and color Doppler sonographic examination of the deep venous system of the right lower extremity was performed. FINDINGS: The common femoral, superficial femoral, and popliteal veins are patent demonstrating normal compressibility, spontaneous flow, and augmentation. There is a normal color and spectral Doppler waveform appearance of the visualized deep venous system above the knee. The posterior tibial and peroneal veins are patent. Incidental note is made of fluid just above the calcaneus which is likely in the retrocalcaneal bursa. US/US venous duplex LE RT IMPRESSION: No evidence of acute DVT in the right lower extremity. Electronically signed by: Chester Jackson MD 10/16/2024 12:23 PM EDT EXAMINATION: XR ANKLE, RIGHT CLINICAL INFORMATION: fall. fracture COMPARISON: None available. TECHNIQUE: AP, lateral, and mortise views of the right ankle. FINDINGS: No fracture, dislocation, or suspicious bone lesion. There is no malalignment. Ankle mortise is intact. The talar dome is normal. The subtalar joints are intact. The midfoot and hindfoot are normally aligned. Moderate sized plantar calcaneal spur, with a large dorsal Achilles spur with overlying soft tissue swelling suggesting acute enthesopathy. There is no ankle joint effusion. The soft tissues appear normal. XR/XR ankle RT 2V IMPRESSION: 1. No acute fracture or dislocation. 2. Acute appearing Achilles enthesopathy, with soft tissue swelling and spurring. 3. Moderate size plantar calcaneal spur. Electronically signed by: Moo Salmon MD 10/16/2024 12:22 PM EDT RP Prescriptions: New prednisone 20 mg tablet 40 mg PO DAILY 5 Days Qty: 10 0RF oxycodone 5 mg tablet 5 mg PO TID PRN (Reason: pain) Qty: 9 0RF Rx Instructions: Partial Fill upon patient request. No Action ketorolac 10 mg tablet 10 mg PO TID PRN (Reason: pain) 5 Days Qty: 10 0RF tamsulosin 0.4 mg capsule 0.4 mg PO DAILY Qty: 7 0RF ondansetron HCl [Zofran] 4 mg tablet 4 mg PO Q6H PRN (Reason: nausea and vomiting) Qty: 14 0RF Referrals: [facility] [Provider Group] (Ankle bursitis.) Yuly Escobedo PA-C [Primary Care Provider] - (Ankle bursitis) Interventions: ED Discharge Assessment Last Done: 10/16/24 14:43 Discharge Date/Time: 10/16/24 14:43 Print Language: [place]
[2024-10-16 11:50] LABS: MANUAL DIFF FLAG NO
[2024-10-16 11:58] LABS: Basophils Absolute Auto 0.1 X10*3/uL (0.0-0.2); Basophils Percent Auto 0.9 % (0-2); Eosinophils Absolute Auto 0.5 X10*3/uL (0.0-0.4); Eosinophils Percent Auto 4.7 % (0-4); Hematocrit 43.7 % (37.0-47.0); Hemoglobin 14.1 g/dl (12.0-16.0); Imm Gran Abs Auto 0.06 X10*3/uL (0.00-0.03); Imm Gran Pct Auto 0.5 % (0.0-0.4); Lymphocytes Absolute Auto 3.2 X10*3/uL (1.2-4.9); Lymphocytes Percent Auto 27.7 % (20-40); Mean Corpuscular HGB Conc 32.3 g/dl (31.0-35.0); Mean Corpuscular Volume 86.7 fL (80.0-98.0); Mean Platelet Volume 9.3 fL (9.4-12.3); Monocytes Absolute Auto 0.7 X10*3/uL (0.1-1.2); Monocytes Percent Auto 5.8 % (2-11); Neutrophils Percent Auto 60.4 % (45-73); Platelet Count 342 X10*3/uL (160-400); Red Blood Count 5.04 X10*6/uL (4.20-5.50); Red Cell Distribution Width 13.5 % (11.0-16.0); White Blood Count 11.5 X10*3/uL (4.8-10.8)
[2024-10-16 12:08] LABS: INTERNATIONAL NORM RATIO 1.1 (0.9-1.1); Prothrombin Time 12.4 SEC (10.9-12.4)
[2024-10-16 12:09] LABS: Anion Gap 12 (12-20); Blood Urea Nitrogen 11 mg/dL (9-16); Carbon Dioxide 25 mmol/L (22-29); Chloride 108 mmol/L (96-108); Creatinine Clr Calc Pharmacy 123.8; Estimated Glomerular Filt Rate > 60; Glucose Random 108 mg/dL (60-115); Sodium 141 mmol/L (135-145)
[2024-10-16 12:10] LABS: Alanine Aminotransferase 26 U/L (0-31); Albumin Level 4.4 g/dL (3.5-5.0); Alkaline Phosphatase 91 U/L (39-117); Aspartate Amino Transferase 22 U/L (5-31); Bilirubin Total 0.2 mg/dL (0.0-1.0); Calcium 9.7 mg/dL (8.4-10.2); Total Protein 7.4 g/dL (6.5-8.0)
[2024-10-16 12:11] LABS: Partial Thromboplastin Time 30.3 SEC (26.0-36.8)
[2024-10-16 14:43] VITALS: BP 129/82; PULSE 82; RESP 16; TEMP 36.4; O2SAT 99
--- OUTSIDE RECORDS SUMMARY | 2024-10-16 15:38 | XMS_ITS | Clinical Summary ---
Author Organization [facility] Address [address] [place] [address] Phone Care Team Providers Care Bevel Polisher Name Role Phone Yuly Escobedo Primary Care Provider Allergies No known active allergies Encounters Date Type Department Care Team Description 09/24/2024 - 09/25/2024 3:49 AM EDT Emergency [facility] Emergency [address] [place] [address] Discharge Disposition: ED Dismiss - Never Arrived 08/12/2024 3:57 AM EST - 08/12/2024 5:23 AM EST Emergency [facility] Emergency [address] [place] [address] Discharge Disposition: Home or Self Care from Last 3 Months Medical History Medical History Date Comments Diabetes mellitus (CMS/HCC V24, CMS/HCC V28) Social History Tobacco Use Types Packs/Day Years Used Date Smoking Tobacco: Unknown Tobacco Cessation:Counseling Given: Not Answered Comments Unknown Sex and Gender Information Value Date Recorded Sex Assigned at Not on file Legal Sex Female 4:30 AM EST Gender Identity Not on file Sexual Orientation Not on file Obstetrics History Last Filed Vital Signs Vital Sign Reading Time Taken Comments Blood Pressure 141/83 08/12/2024 4:00 AM EST Pulse 80 08/12/2024 4:00 AM EST Temperature 36.7 ??C (98.1 ??F) 08/12/2024 4:00 AM ES T Respiratory Rate 16 08/12/2024 4:00 AM EST Oxygen Saturation 98% 08/12/2024 4:00 AM EST Inhaled Oxygen Concentration - - Weight 117 kg (258 lb) 08/12/2024 4:00 AM EST Height 160 cm (5' 3 ) 08/12/2024 4:00 AM EST Body Mass Index 45.7 08/12/2024 4:00 AM EST Plan of Treatment Health Maintenance Due Date Last Done Comments Diabetes: Annual Foot Exam 1997 Diabetes: Annual Retina Eye Exam 1997 Hepatitis B Vaccines (1 of 3 - 19+ 3-dose series) 2006 Cervical Cancer Screening: Pap Smear 02/21/2008 HPV Vaccines (2 - 3-dose series) 12/05/2009 11/07/2009 DTaP,Tdap,and Td Vaccines (8 - Td or Tdap) 11/08/2019 11/07/2009, 10/27/1999, 02/10/1993, Additional history exists HIV Screening 05/17/2022 Medicare Annual Wellness Visit 05/17/2022 Social Influencers of Health Screening 05/17/2022 Depression Screening 07/08/2023 07/08/2022 COVID-19 Vaccine ( season) 2024 Diabetes: Annual Urine Albumin-Creatinine Ratio (uACR) 08/12/2024 06/29/2019 Diabetes: Blood Sugar Control Test (HGBA1C) 02/04/2025 08/07/2024 Influenza Vaccine (Season Ended) 2025 Diabetes: Annual GFR (Glomerular Filtration Rate) 08/07/2025 08/07/2024 Cholesterol Screening (Lipid Panel) 08/07/2029 08/07/2024, 07/19/2023, 01/03/2021, Additional history exists HIB Vaccines Completed 08/24/1988 IPV Vaccines Completed 02/10/1993, 01/13, 1987, Additional history exists MMR Vaccines Completed 03/09/1995, 07/10/1988 Varicella Vaccines Aged Out 05/26/2007 No longer eligible based on patient's age to complete this topic Hepatitis C Screening Completed 09/10/2023 Hepatitis A Vaccines Aged Out No long er eligible based on patient's age to complete this topic Meningococcal ACWY Vaccine Aged Out N o longer eligible based on patient's age to complete this topic Meningococcal B Vaccine Aged Out No l onger eligible based on patient's age to complete this topic Pneumococcal Vaccine: Pediatrics (0 to 5 Years) and At-Risk Patients (6 to 64 Years) Aged Out No longer eligible based on patient's age to complete this topic RSV Immunization Patients Under 20 months Aged Out No longer eligible based on patient's age to complete this topic Insurance MEDICARE MEDICAID - [place] Care Teams Bevel Polisher Relationship Specialty Start Date End Date Yuly Escobedo PA [address] [place] [address] PCP - General 09/28/24
--- OUTSIDE RECORDS SUMMARY | 2024-10-16 15:38 | XMS_ITS | Clinical Summary ---
Author Organization [facility] Address [address] [place] [address] Care Team Providers Care Phlebotomist Prn Name Role Phone Yuly Escobedo PA-C Primary Care Provider Source Comments PLEASE NOTE, if this patient is a minor, it may be UNLAWFUL to discuss sensitive information that is contained in these records (such as FAMILY PLANNING, MENTAL HEALTH or SUBSTANCE ABUSE) with the minor patient's parent or other person without the patient's specific authorization.[facility] Allergies Active Allergy Reactions Criticality Noted Date Comments Acetaminophen-Codeine 06/08/2022 Meperidine Hives 06/08/2022 Oxcarbazepine 06/08/2022 Quetiapine 06/08/2022 Medications clonazePAM (KLONOPIN) 2 mg tablet Take 2 mg by mouth 2 (two) times daily 1 019 Active dextroamphetamine -amphetamine (ADDERALL) 20 mg tablet Take 20 mg by mouth 2 (two) times daily 0 019 Active lithium ER (LITHOBID) 300 mg ER tablet Take 1 Tablet by mouth once daily 1 023 Active spironolactone (ALDACTONE) 25 mg tablet Take 1 Tablet by mouth once daily Use one tablet by mouth twice daily. 180 Tablet 3 024 Active FREESTYLE LANCETS 28 gaugeIndications: Type 2 diabetes mellitus without complication, without long-term current use of insulin ([facility]) USE DIRECTED DAILY 100 Each 11 024 Active traMADoL (ULTRAM) 50 mg tabletIndications :Closed fracture of shoulder, unspecified laterality, initial encounter Take 1 Tablet by mouth 4 (four) times daily as needed for pain 4 Tablet 024 Active rOPINIRole (REQUIP) 0.25 mg tabletIndications :Restless leg syndrome TAKE 3 TABLETS BY MOUTH EVERY NIGHT AT BEDTIME 270 Tablet 1 024 Active norethindrone, contraceptive, (MICRONOR) 0.35 mg tablet TAKE 1 TABLET BY MOUTH DAILY 84 Tablet 2 024 Active alcohol swabsIndications: Type 2 diabetes mellitus without complication, without long-term current use of insulin ([facility]) USE DIRECTED ONCE DAILY 100 Each 11 024 Active nicotine, polacrilex, (NICORETTE) 4 mg gumIndications:To bacco use disorder Take 1 Each by mouth as needed for smoking cessation Use 1 gum every 2 hrs, no more than 24 gums a day x 30 days. 110 Each 2 025 Active metFORMIN (GLUCOPHAGE) 1,000 mg tabletIndications :Type 2 diabetes mellitus without complication, without long-term current use of insulin ([facility]) TAKE 1 TABLET BY MOUTH DAILY WITH DINNER 90 Tablet 1 025 Active semaglutide (OZEMPIC) 0.25 mg or 0.5 mg (2 mg/3 mL) pen injectorIndicatio ns:Medication management,Type 2 diabetes mellitus without complication, without long-term current use of insulin ([facility]) Inject 0.5 mg into the skin once a week 3 mL 1 025 Active blood-glucose meter monitoring kitIndications:Ty pe 2 diabetes mellitus without complication, without long-term current use of insulin ([facility]) 1 Each as needed for blood glucose monitoring Freestyle. E11.9 Diabetes 1 Each 025 Active blood sugar diagnostic (FREESTYLE LITE STRIPS) stripsIndications :Type 2 diabetes mellitus without complication, without long-term current use of insulin ([facility]) USE TO CHECK BLOOD SUGAR DAILY DIRECTED. 100 Each 5 025 Active venlafaxine XR (EFFEXOR XR) 37.5 mg 24 hr capsuleIndication s:Acute nonintractable headache, unspecified headache type,Nausea and vomiting, unspecified vomiting type TAKE 1 CAPSULE BY MOUTH DAILY WITH BREAKFAST 90 Capsule 025 Active diclofenac sodium (VOLTAREN) 1 % gelIndications:Pl kelsi fasciitis of right foot Apply topically 2 (two) times daily 100 g 3 025 Active venlafaxine XR (EFFEXOR XR) 37.5 mg 24 hr capsuleIndication s:Acute nonintractable headache, unspecified headache type,Nausea and vomiting, unspecified vomiting type TAKE 1 CAPSULE BY MOUTH DAILY WITH BREAKFAST 90 Capsule 025 2024 Discontinued clindamycin phosphate (CLINDAGEL) 1 % gelIndications:[place]utledge ppurative hidradenitis Apply topically 2 (two) times daily 30 g 1 025 2024 Discontinued(Q uantity/Dosage and/or Sig change) clindamycin phosphate (CLINDAGEL) 1 % gelIndications:[place]utledge ppurative hidradenitis Apply topically 2 (two) times daily for 7 days 30 g 1 025 2024 Active Problems Problem Noted Date Diagnosed Date Abnormal ophthalmologic exam 09/02/2023 Overview (09/02/2023): 08/30/2023 - Web Programmer report - DM type 2 - No active DM retinopathy present. RTCC 1 year for exam, sooner if problems or changes - Idiopathic intracranial hypertension. Previously diagnosed with pseudotumor cerebri and followed by neurology per patient. Mild elevation of optic nerves on exam today. Recommend f/u with neurologist/pcp as directed. -Myopia OU. The patient was given a new glasses Rx today. Bipolar disorder, in full re mission, most recent episode mixed ([facility]) 03/21/2021 Hx of tubal ligation 05/19/2019 Type 2 diabetes mellitus wit h hyperglycemia, without long-term current use of insulin ([facility]) 05/19/2019 Anxiety and depression 09/28/2017 Encounters Date Type Department Care Team Description 09/27/2024 2:00 PM EDT Office Visit [address] [phone] Yuly Escobedo PA-C Synovial cyst of right popliteal space (Primary Dx); Suppurative hidradenitis 09/24/2024 Telemedicine Visit [address] [phone] Leora Ellsworth MD Synovial cyst of right popliteal space (Primary Dx); Plantar fasciitis of right foot 08/28/2024 10:20 AM EDT Telemedicine Visit [address] [phone] Yuly Escobedo PA-Nnamdi BMI 45.0-49.9, adult ([facility]) (Primary Dx); Type 2 diabetes mellitus without complication, without long-term current use of insulin ([facility]) 08/14/2024 Telemedicine Visit [address] [phone] Leigh Tello PA Medication management (Primary Dx); Type 2 diabetes mellitus without complication, without long-term current use of insulin ([facility]) 08/10/2024 Interim Notes [address] [phone] Yuly Escobedo PA-C Type 2 diabetes mellitus without complication, without long-term current use of insulin ([facility]) 08/07/2024 8:40 AM EST Telemedicine Visit [address] [phone] Yuly Escobedo PA-C Type 2 diabetes mellitus without complication, without long-term current use of insulin ([facility]) (Primary Dx); Bipolar disorder, in full remission, most recent episode mixed ([facility]); BMI 45.0-49.9, adult ([facility]) from Last 3 Months Immunizations Immunization Administration Dates Next Due DTAP 02/10/1993, 9,1987,1987,1987 HPV, QUADRIVALENT 11/07/2009 Hep B vaccine, adolescent/hi gh risk dosage 03/29/2000,10/27/1999,09/25/1999 Hib, unspecified 08/24/1988 IPV (IPOL) 02/10/1993, 9,1987,1986 MMR (MMR II/Priorix) 03/09/1995,07/10/1988 TDAP 11/07/2009 Td (adult) unspecified 10/27/1999 Varicella (Varivax), Live Vaccine 05/26/2007 Social History Tobacco Use Types Packs/Day Years Used Date Smoking Tobacco: Every Day Cigarettes Smokeless Tobacco: Never Tobacco Cessation:Ready to Q uit: Not Asked; Counseling Given: Yes Alcohol Use Standard Drinks/Week Comments Not Currently 0 (1 standard drink = 0.6 oz pur e alcohol) Social Connections Answer Date Recorded Connectedness 2 08/20/2023 Financial Resource Strain Answer Date R ecorded Financial Resource Strain 1 2023 Stress Answer Date Recorded Stress 2 08/20/2023 Physical Activity Answer Date Recorded Physical Activity 0 02/06/2019 Food Insecurity Answer Date Recorded Food 1 08/20/2023 Transportation Needs Answer Date Record ed Transportation 1 08/20/2023 Housing Stability Answer Date Recorded Housing 1 08/20/2023 Safety and Environment Answer Date Preston rded Safety 1 09/27/2024 Utilities Answer Date Recorded Utilities 1 08/20/2023 Employment Answer Date Recorded Employment 0 02/06/2019 Comments No Sex and Gender Information Value Date Recorded Sex Assigned at Female 05/01/2019 7:07 AM PST Legal Sex Female 1:22 PM PST Gender Identity Female 05/01/2019 7:07 AM PST Sexual Orientation Straight 05/01/2019 7: 07 AM PST Last Filed Vital Signs Vital Sign Reading Time Taken Comments Blood Pressure 124/76 09/27/2024 2:09 PM EDT Pulse 90 09/27/2024 2:09 PM EDT Temperature 36.8 ??C (98.3 ??F) 09/27/2024 2:09 PM ED T Respiratory Rate 16 09/27/2024 2:09 PM EDT Oxygen Saturation 98% 09/27/2024 2:09 PM EDT Inhaled Oxygen Concentration - - Weight 115.5 kg (254 lb 11.2 oz) 09/27/2024 2:09 PM EDT Height 160 cm (5' 3 ) 07/30/2023 1:41 PM EST Body Mass Index 45.12 07/30/2023 1:41 PM EST Plan of Treatment Health Maintenance Due Date Last Done Comments Anxiety Screening 1987 Dental Examination 1987 Diabetes Foot Exam 1987 HPV Screening 1987 Medicare Annual Wellness Visit 2005 Imm-Pneumococcal (1 of 2 - PCV) 2006 Imm-DTaP/Tdap/Td (7 - Td or Tdap) 11/08/2019 11/07/2009, 10/27/1999, 02/10/1993, Additional history exists Urine Albumin Creatinine Rat io Screening 06/29/2020 06/29/2019 [id number] ( season) 2024 Imm-Influenza (#1) 2024 Retinopathy Screening 08/29/2024 08/30/2023, 020 Depression Monitoring 12/27/2024 09/27/2024 , 07/08/2022, 01/03/2021, Additional history exists Diabetes HbA1c 02/04/2025 08/07/2024, 02/0 10/2023, 06/24/2022, Additional history exists Lipid Screening 08/07/2025 08/07/2024, 02/0 10/2023, 01/03/2021, Additional history exists Serum Creatinine 08/07/2025 08/07/2024, , 06/01/2022, Additional history exists Relationship Safety Screening/Counseling 09/27/2025 09/27/2024, 08/20/2023, 07/08/2022, Additional history exists Tobacco Cessation Counseling (#1) 09/27/2025 Pap Smear 07/30/2026 07/30/2023 Hypertension Screening (#1) 09/27/2027 Cervical Cancer Screening 07/30/2028 Pap + HPV 07/30/2028 07/30/2023 Imm-Hepatitis B Completed 03/29/2000, 10/12, 09/25/1999 HIV Screening Completed 06/01/2022, 04/28/2019 Hepatitis C Screening Completed 09/10/2023, 022 Alcohol and Drug Screen Completed 09/28/19, 08/20/2023, 07/08/2022, Additional history exists Cervical Ablation/Cold-Knife Conization Discontinued Cervical Cryotherapy Discontinued Colposcopy Discontinued Endometrial Biopsy Discontinued Excision/Leep Discontinued HPV Genotyping Discontinued Vaginal Pap Discontinued Vulvoscopy Discontinued Procedures Procedure Name Priority Date/Time Associated Diagnosis Comments OTHER ORDERS SCANNED DOCUMENT 08/18/2024 3:00 AM EST LIPIDS W RFLX TO DIRECT LDL Routine 08/07/2024 3:47 PM EST Type 2 diabetes mellitus without complication, without long-term current use of insulin ([facility]) BMI 45.0-49.9, adult ([facility]) HGA1C W/EAG Routine 08/07/2024 3:47 PM EST Bipolar disorder, in full remission, most recent episode mixed ([facility]) TSH W/RFLX FREE T4 Routine 08/07/2024 3: 47 PM EST Type 2 diabetes mellitus without complication, without long-term current use of insulin ([facility]) Bipolar disorder, in full remission, most recent episode mixed ([facility]) BMI 45.0-49.9, adult ([facility]) COMPREHENSIVE METABOLIC PANEL Routine 08/07/2024 3:47 PM EST Type 2 diabetes mellitus without complication, without long-term current use of insulin ([facility]) Bipolar disorder, in full remission, most recent episode mixed ([facility]) BLOOD COUNT COMPLETE AUTO&AUTO DIFRNTL WBC Routine 08/07/2024 3:47 PM EST Type 2 diabetes mellitus without complication, without long-term current use of insulin ([facility]) Bipolar disorder, in full remission, most recent episode mixed ([facility]) OTHER ORDERS SCANNED DOCUMENT 07/20/2024 3:00 AM EST ACUTE HEPATITIS PANEL W/RFLX Routine 09/10/2023 9:53 AM EDT Elevated liver enzymes REFERRAL TO OPHTHALMOLOGY Routine 08/30/2023 3:00 AM EDT Type 2 diabetes mellitus without complication, without long-term current use of insulin ([facility]) THIN PREP IMAGE PAP + HPV RNA E6/E7 W/RFLX HPV 16, 18/45 Routine 07/30/2023 4:32 PM EST Screening for HPV (human papillomavirus) HIV 1/2 AG & AB W/RFLX (4TH GEN) Routine 06/01/2022 8:36 AM EST Elevated liver enzymes MICROALBUMIN/CREATININ E RATIO, URINE, RANDOM Routine 06/29/2019 10:47 AM EST Type 2 diabetes mellitus with hyperglycemia, without long-term current use of insulin ([facility]) from Last 3 Months or Most Recently Relevant to Health Maintenance Results * OTHER ORDERS SCANNED DOCUMENT (08/18/2024 3:00 AM EST) Only the most recent of2 resultswithin the time period is included. 08/18/2024 3:00 AM EST us Yuly Escobedo PA-C SCAN OTHER ORDERS Final Resu lt * (ABNORMAL) HGA1C W/EAG (08/07/2024 3:47 PM EST) HEMOGLOBIN A1C 6.4(H) <5.7 % of total Hgb [facility] Comment: For someone without known diabetes, a hemoglobin A1c value between 5.7% and 6.4% is consistent with prediabetes and should be confirmed with a follow-up test. For someone with known diabetes, a value <7% indicates that their diabetes is well controlled. A1c targets should be individualized based on duration of diabetes, age, comorbid conditions, and other considerations. This assay result is consistent with an increased risk of diabetes. Currently, no consensus exists regarding use of hemoglobin A1c for diagnosis of diabetes for children. EAG (MG/DL) 137 mg/dL [facility] EAG (MMOL/L) 7.6 mmol/L [facility] Blood Blood / Unknown 08/07/2024 3 :47 PM EST 08/07/2024 3:47 PM EST us Yuly Escobedo PA-C LAB - BLOOD DRAW Edited Resu lt - Final [facility] [address] [place] [phone], [facility] [address] [place] [phone] * TSH W/RFLX FREE T4 (08/07/2024 3:47 PM EST) TSH W/REFLEX TO FT4 1.31 0.40 - 4.50 mIU/L [facility] Comment: ?Reference Range ?> or = 20 Years ??0.40-4.50 ? Ranges ?First trimester ?0.26-2.66 ?Second trimester ?? 0.55-2.73 ?Third trimester ?0.43-2.91 Blood Blood / Unknown 08/07/2024 3 :47 PM EST 08/07/2024 3:47 PM EST Yuly Escobedo PA-C LAB - BLOOD DRAW Edited Resu lt - Final [facility] [address] [place] [phone], [facility] [address] [place] [phone] * (ABNORMAL) LIPIDS W RFLX TO DIRECT LDL (08/07/2024 3:47 PM EST) Pathologist [facility] CHOLESTEROL, TOTAL 167 <200 mg/dL [facility] HDL CHOLESTEROL 33(L) > OR = 50 mg/dL [facility] TRIGLYCERIDES 170(H) <150 mg/dL [facility] LDL-CHOLESTEROL 105(H) 99 mg/dL (calc) [facility] Comment: Reference range: <100 Desirable range <100 mg/dL for primary prevention; ?? <70 mg/dL for patients with CHD or diabetic patients with > or = 2 CHD risk factors. LDL-C is now calculated using the Mitchell calculation, which is a validated novel method providing better accuracy than the Friedewald equation in the estimation of LDL-C. Sherman PAEZ et al. SOWMYA. 2013;310(19): 6324-1819 (http://education.Everfi/faq/BZM639) CHOL/HDLC RATIO 5.1(H) <5.0 (calc) [facility] NON-HDL CHOLESTEROL 134(H) <130 mg/dL (calc) [facility] Comment: For patients with diabetes plus 1 major ASCVD risk factor, treating to a non-HDL-C goal of <100 mg/dL (LDL-C of <70 mg/dL) is considered a therapeutic option. Blood Blood / Unknown 08/07/2024 3 :47 PM EST 08/07/2024 3:47 PM EST us Yuly Escobedo PA-C LAB - BLOOD DRAW Final Resul t [employer] [address] [address], [employer] [address] [phone] * (ABNORMAL) BLOOD COUNT COMPLETE AUTO&AUTO DIFRNTL WBC (08/07/2024 3:47 PM EST) Pathologist [facility] WHITE BLOOD CELL COUNT 10.6 3.8 - 10.8 Thousand/ uL [facility] RED BLOOD CELL COUNT 5.03 3.80 - 5.10 Million/u L [facility] HEMOGLOBIN 14.1 11.7 - 15.5 g/dL [facility] HEMATOCRIT 43.5 35.0 - 45.0 % [facility] MCV 86.5 80.0 - 100.0 fL [facility] MCH 28.0 27.0 - 33.0 pg [facility] MCHC 32.4 32.0 - 36.0 g/dL [facility] Comment: For adults, a slight decrease in the calculated MCHC value (in the range of 30 to 32 g/dL) is most likely not clinically significant; however, it should be interpreted with caution in correlation with other red cell parameters and the patient's clinical condition. RDW 12.4 11.0 - 15.0 % [facility] PLATELET COUNT 358 140 - 400 Thousand/ uL [facility] MPV 10.2 7.5 - 12.5 fL [facility] ABSOLUTE NEUTROPHILS 5,607 1,500 - 7,800 cells/uL [facility] ABSOLUTE LYMPHOCYTES 3,562 850 - 3,900 cells/uL [facility] ABSOLUTE MONOCYTES 742 200 - 950 cells/uL [facility] ABSOLUTE EOSINOPHILS 572(H) 15 - 500 cells/uL [facility] ABSOLUTE BASOPHILS 117 0 - 200 cells/uL [facility] NEUTROPHILS PCT 52.9 % [facility] [employer] LYMPHOCYTES 33.6 % [facility] [employer] MONOCYTES 7.0 % [facility] [employer] EOSINOPHILS 5.4 % [facility] [employer] BASOPHILS 1.1 % [facility] [employer] Blood Blood / Unknown 08/07/2024 3 :47 PM EST 08/07/2024 3:47 PM EST Yuly Escobedo PA-C LAB - BLOOD DRAW Edited Resu lt - Final [facility] [address] [address], [facility] [address] [place] [phone] * (ABNORMAL) COMPREHENSIVE METABOLIC PANEL (08/07/2024 3:47 PM EST) GLUCOSE 124(H) 65 - 99 mg/dL [facility] Comment: ?Fasting reference interval For someone without known diabetes, a glucose value between 100 and 125 mg/dL is consistent with prediabetes and should be confirmed with a follow-up test. UREA NITROGEN (BUN) 10 7 - 25 mg/dL [facility] CREATININE (blood) 0.72 0.50 - 0.97 mg/dL [facility] EGFR 110 > OR = 60 mL/min/1. 73m2 [facility] BUN/CREATININE RATIO SEE NOTE: [facility] Comment: ?? Not Reported: BUN and Creatinine are within ?? reference range. ? SODIUM 139 135 - 146 mmol/L [facility] POTASSIUM 4.6 3.5 - 5.3 mmol/L [facility] CHLORIDE 104 98 - 110 mmol/L [facility] CARBON DIOXIDE 27 20 - 32 mmol/L [facility] CALCIUM 9.8 8.6 - 10.2 mg/dL [facility] PROTEIN, TOTAL 6.6 6.1 - 8.1 g/dL [facility] ALBUMIN 4.5 3.6 - 5.1 g/dL [facility] GLOBULIN 2.1 1.9 - 3.7 g/dL (calc) [facility] ALBUMIN/GLOBULI N RATIO 2.1 1.0 - 2.5 (calc) [facility] BILIRUBIN, TOTAL 0.3 0.2 - 1.2 mg/dL [facility] ALKALINE PHOSPHATASE 71 31 - 125 U/L [facility] AST 17 10 - 30 U/L [facility] ALT 21 6 - 29 U/L [facility] Blood Blood / Unknown 08/07/2024 3 :47 PM EST 08/07/2024 3:47 PM EST Yuly Escobedo PA-C LAB - BLOOD DRAW Final Resul t [facility] [address] [address], [facility] [address] [phone] * ACUTE HEPATITIS PANEL W/RFLX (09/10/2023 9:53 AM EDT) HEPATITIS A IGM ANTIBODY NON-REACT KATHE NON-REACT KATHE [facility] COMMENT [facility] HEPATITIS B SURFACE ANTIGEN NON-REACT KATHE NON-REACT KATHE [facility] COMMENT [facility] HEPATITIS B CORE IGM ANTIBODY NON-REACT KATHE NON-REACT KATHE [facility] COMMENT [facility] HEPATITIS C ANTIBODY NON-REACT KATHE NON-REACT KATHE [facility] Comment: HCV antibody was non-reactive. There is no laboratory evidence of HCV infection. In most cases, no further action is required. However, if recent HCV exposure is suspected, a test for HCV RNA (test code 89325) is suggested. For additional information please refer to http://education.[employer]Vu Entertainment/faq/ZGW37g0 (This link is being provided for informational/ educational purposes only.) Blood Blood / Unknown 09/10/2023 9 :53 AM EDT 09/10/2023 9:55 AM EDT Narrative [facility] - 09/11/2023 4:50 AM EDT For additional information, please refer to http://[employer]/faq/ZJL749 (This link is being provided for informational/ educational purposes only.) For additional information, please refer to http://[employer]/faq/KDR160 (This link is being provided for informational/ educational purposes only.) For additional information, please refer to http://[employer]/faq/TYC368 (This link is being provided for informational/ educational purposes only.) Yuly Escobedo PA-C LAB - BLOOD DRAW Final Resul t [facility] [address] [address], [facility] [address] [place] [address] * REFERRAL TO OPHTHALMOLOGY (08/30/2023 3:00 AM EDT) 08/30/2023 3:00 AM EDT Kay Brice PA-C REFERRAL Edited Resu lt - Final * THIN PREP IMAGE PAP + HPV RNA E6/E7 W/RFLX HPV 16, 18/45 (07/30/2023 4:32 PM EST) CLINICAL INFORMATION See Note [facility] Comment:Normal exam LMP See Note [facility] Comment:[id number] PREV. PAP See Note [facility] Comment:NONE GIVEN PREV. BX See Note [facility] Comment:NONE GIVEN SOURCE See Note [facility] Comment:Cervix STATEMENT OF ADEQUACY See Note [facility] Comment: Satisfactory for evaluation. Endocervical/transformation zone component absent. INTERPRETATION/RESU LT See Note [facility] Comment: Cytology Results: Negative for intraepithelial lesion or malignancy. INFECTION See Note [facility] Comment: Shift in vaginal kaitlyn suggestive of bacterial vaginosis. COMMENT See Note [facility] Comment: This Pap test has been evaluated with computer assisted technology. COURT USHER See Note MAURICIO [employer] [facility] Comment: WXW, CT(ASCP) CT Screening Location: [address] [address] COMMENT [facility] HPV MRNA E6/E7 Not Detected Not Detected [facility] Comment: Methodology: Range Management Specialist-Mediated Amplification This assay detects E6/E7 viral messenger RNA (mRNA) from 14 high-risk HPV types (16,18,31,33,35,39,45,51,52,56,58,59,66,68). Cervical sources are required for HPV testing. If a vaginal source from a patient who has had a total hysterectomy with removal of cervix was submitted, please contact the testing laboratory for alternative testing options. For additional information, please refer to http://education.[employer]/faq/CJL992h2 (This link if provided for information/ educational purposes only.) Swab Cervix uteri structure / Unknown 07/30/2023 4:32 PM EST 08/02/2023 7:44 AM EST Narrative [facility] - 08/03/2023 11:05 AM EST EXPLANATORY NOTE: The Pap is a screening test for cervical cancer. It is not a diagnostic test and is subject to false negative and false positive results. It is most reliable when a satisfactory sample, regularly obtained, is submitted with relevant clinical findings and history, and when the Pap result is evaluated along with historic and current clinical information. us Chester Villasenor MD LAB - NO BLOOD DRAW Final Resul t [facility] [address] [address], [facility] [address] [address] * HIV 1/2 AG & AB W/RFLX (4TH GEN) (06/01/2022 8:36 AM EST) HIV AG/AB, 4TH GEN NON-REAC TIVE NON-REAC TIVE [facility] Comment: HIV-1 antigen and HIV-1/HIV-2 antibodies were not detected. There is no laboratory evidence of HIV infection. PLEASE NOTE: This information has been disclosed to you from records whose confidentiality may be protected by state law. ??If your state requires such protection, then the state law prohibits you from making any further disclosure of the information without the specific written consent of the person to whom it pertains, or as otherwise permitted by law. A general authorization for the release of medical or other information is NOT sufficient for this purpose. ?? For additional information please refer to http://[employer]ami [employer]/faq/AYX400 (This link is being provided for informational/ educational purposes only.) The performance of this assay has not been clinically validated in patients less than 2 years old. Blood Blood / Unknown 06/01/2022 8 :36 AM EST 06/01/2022 8:36 AM EST Deonte Dawkins [facility] - BLOOD DRAW F inal Result Performing Organization Address City/[facility]/ZIP Co de Phone Number [facility] [address] [address], [facility] [address] ([address]) [place] [address] * MICROALBUMIN/CREATININE RATIO, URINE, RANDOM (06/29/2019 10:47 AM EST) CREATININE, RANDOM URINE 63 mg/dL [facility] MICROALBUMIN, RANDOM 7.9 0.0 - 29.0 mg/L [facility] MICROALB/CRE RATIO RANDOM < 12.5 0.0 - 30.0 mg/G [facility] Urine specimen (specimen) Urine specimen / Unknown 06/29/2019 10:47 AM EST 06/29/2019 12:48 PM EST Narrative [facility] - 06/29/2019 4:50 PM EST [employer], [place] [address] Mortician Investigator - Annabelle Gillespie MD PT ID [id number] ORD# [id number] [facility] [facility] - NO BLOOD DRAW Edited Resu lt - Final [facility] [address] [place] [address], from Last 3 Months or Most Recently Relevant to Health Maintenance Insurance [place] - [place] Care Teams Phlebotomist Prn Relationship Specialty Start Date End Date Yuly Escobedo PA-C [address] [place] [address] PCP - General Internal Medicine 07/05/20
== END 2024-10-16 14:43 | disposition home or self-care (01) ==
PROVIDERS: Physician Assistant; Emergency Provider Emergency Medicine; PCP Physician Assistant
DX: M77.51 Other enthesopathy of right foot and ankle (principal); M79.604 Pain in right leg; R60.0 Localized edema; Z79.899 Other long term (current) drug therapy
CPT/HCPCS: 36415; 73564; 73590; 73600; 73620; 80053; 85025; 85610; 85730; 93971; 99282; 99283; 99284

== ENCOUNTER → 2024-10-16 11:21 | Outpatient (BNV) | payer MEDICARE, MEDICAID, SELFPAY | PROVIDERS: PCP Physician Assistant; Visit Provider Radiology Diagnostic Radiology | DX: M79.661 Pain in right lower leg (principal); M25.561 Pain in right knee; M79.604 Pain in right leg; M76.61 Achilles tendinitis, right leg; M77.31 Calcaneal spur, right foot | CPT/HCPCS: 73564; 73590; 73600; 73620 ==